=== PATIENT | male | born 1960 | race African-American/Black ===

== ENCOUNTER 2017-03-28 12:21 | Emergency (ER) | payer OTHER ==
[~2017-03-28] VITALS: Ht 185.4 cm; Wt 84.4 kg
[~2017-03-28 12:21] MED LIST: OXYC-650 PO; OXYCONTIN 80 MG PO; RIVA20TA PO
[2017-03-28 13:20] LABS: Basophils # (auto) 0 uL; Basophils % (auto) 0.4 % (0.0-2.0); Eosinophils # (auto) 0.1 uL; Eosinophils % (auto) 2.1 % (0.0-7.0); Hematocrit 43.7 % (41.0-53.0); Hemoglobin 14.8 g/dL (13.5-17.5); Lymphocytes # (auto) 2.1 uL; Lymphocytes % (auto) 39.2 % (10.0-50.0); Mean Corpuscular Hgb Conc. 33.9 g/dL (32.0-36.0); Mean Corpuscular Volume 94.6 fL (80.0-100.0); Mean Platelet Volume 6.8 fL (6.9-10.8); Monocytes # (auto) 0.5 uL; Monocytes % (auto) 9.4 % (0.0-12.0); Neutrophils # (auto) 2.6 uL; Neutrophils % (auto) 48.9 % (37.0-80.0); Nucleated Red Blood Cells % 0.2 %; Platelet Count (auto) 235 10^3/uL (140-450); White Blood Cell 5.4 10^3/uL (4.4-10.8)
[2017-03-28 13:28] LABS: Alkaline Phosphatase 83 U/L (45-117); Anion Gap 9 (5-15); Aspartate Aminotransferase 25 U/L (15-37); BUN/Creatinine Ratio 13.1; Bilirubin, Total 0.4 mg/dL (0.2-1.0); Blood Urea Nitrogen 13 mg/dL (7-18); Calcium 9.7 mg/dL (8.5-10.1); Carbon Dioxide 25 mmol/L (21-32); Chloride 107 mmol/L (98-107); GFR African American 101 mL/min; GFR Non-African American 83 mL/min; Glucose 128 mg/dL (74-106); Sodium 141 mmol/L (136-145)
[2017-03-28] MEDS: SODIUM CHLORIDE 0.9% 1,000 ML IVB ONE (14:24)
[2017-03-28] MEDS: ASPirin 81 mg TAB PO ONE (14:25)
[2017-03-28 14:27] VITALS: BP 106/72
[2017-03-28 14:35] LABS: B-Type Natriuretic Peptide < 5 pg/mL (0-100); Temperature: 23.5 C (20.0-25.0)
== END 2017-03-28 14:50 | disposition home or self-care (01) ==
LOC: ER 12:21
DX: R07.89 Other chest pain (principal); F41.9 Anxiety disorder, unspecified; I25.2 Old myocardial infarction; M79.602 Pain in left arm; Z79.899 Other long term (current) drug therapy; Z79.01 Long term (current) use of anticoagulants; Z79.82 Long term (current) use of aspirin; Z90.49 Acquired absence of other specified parts of digestive tract; Z86.711 Personal history of pulmonary embolism
CPT/HCPCS: 36415; 71020; 80053; 83880; 84443; 84484; 85025; 93005; 94761; 99285; J7030

== ENCOUNTER 2022-03-19 07:14 | Day surgery (SDC) | payer OTHER ==
[~2022-03-19] VITALS: Ht 185.4 cm; Wt 78.9 kg
[~2022-03-19 07:14] MED LIST changes: -OXYC-650 PO; +UBRO100T2 PO; +[UNRECOGNIZED DRUG - CODE] SC
[2022-03-19] MEDS ORDERED: LIDOCAINE 2%HCL (LOCAL ANESTH.) INJ 10ml MDV ONE (07:35)
[2022-03-19] MEDS ORDERED: IODIXANOL 320MG/ML 100ML BTL IV ONE (07:35)
[2022-03-19] MEDS ORDERED: ANGIOMAX 250 MG VIAL IV ONE (07:59)
[2022-03-19] MEDS ORDERED: HEPARIN SODIUM (PORCINE) 5000 UNITS/ML 1ML VIAL ONE (08:00)
[2022-03-19] MEDS ORDERED: fentaNYL CITRATE 100 MCG/2 ML VL ONE (08:00)
[2022-03-19] MEDS ORDERED: MIDAZOLAM HCL 2MG/2ML 2ml VIAL (1mg/ml) ONE (08:00)
[2022-03-19] MEDS ORDERED: SODIUM CHL 0.9% 0 ML ONE (08:00)
[2022-03-19] MEDS ORDERED: VERAPAMIL 2.5MG/ML INJ 2ML VIAL IV ONE (08:01)
== END 2022-03-19 11:21 | disposition home or self-care (01) ==
LOC: CATH 07:14
PROVIDERS: ATTEND Internal Medicine Cardiovascular Disease
DX: R06.02 Shortness of breath (principal); R07.89 Other chest pain; Z86.718 Personal history of other venous thrombosis and embolism; Z98.890 Other specified postprocedural states; I47.1 Supraventricular tachycardia; I73.9 Peripheral vascular disease, unspecified; Z79.899 Other long term (current) drug therapy; Z79.01 Long term (current) use of anticoagulants; Z20.822 Contact with and (suspected) exposure to COVID-19
CPT/HCPCS: 93458; C1769; C1887; C1894; J1644; J2001; J2250; J3010; J7030; Q9967; U0003; 99152